=== PATIENT | male | born 2000 | race Two or more races ===

== ENCOUNTER → 2024-09-03 | Outpatient (CLI) | payer MEDICAID, SELFPAY ==
--- NOTE | 2024-09-03 14:58 | XR_ITS ---
Examination: Knee, right , 3 views Technique: Knee AP, lateral, oblique 3 views Date and time of exam: September 03, 2024 1514 hours INDICATIONS: Knee pain 6 weeks history patellar dislocation FINDINGS: No fracture or definite dislocation No significant joint narrowing IMPRESSION: Consider axial view of the patella follow-up
== END | disposition home or self-care (01) ==
PROVIDERS: PCP Internal Medicine; Referring Provider Internal Medicine; Visit Provider Internal Medicine
DX: M25.561 Pain in right knee (principal)
CPT/HCPCS: 73562